=== PATIENT | male | born 1930 | race Caucasian/White ===

== ENCOUNTER 2017-12-31 18:42 | Emergency (ER) | payer MEDICARE ==
[2017-12-31] MEDS ORDERED: NS 0.9% 1000 ML* 1,000 ML BOLUS ONE (19:02)
[2017-12-31] MEDS ORDERED: Morphine INJ* 2 MG/ML 1 ML CARPUJECT IV ONE ×2 (19:03→19:21)
--- NOTE | 2017-12-31 19:13 | UC ---
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 abd was not feeling right since this AM no f/c nausea but no vomiting starined to pass stool prior to the onset of severe pain - History of Current Complaint Chief Complaint: UCAbdominalPain Stated Complaint: ABD PAIN Time Seen by Provider: 12/31/17 18:51 Hx Obtained From: Patient Onset/Duration: Sudden Onset Timing: Constant Severity Initially: Severe Severity Currently: Severe Pain Intensity: 10 Pain Scale Used: 0-10 Numeric Location: Other - LUQ Radiates: No Character: Unable to describe Aggravating Factor(s): Nothing Alleviating Factor(s): Nothing Associated Signs And Symptoms: Positive: Nausea - Allergies/Home Medications Allergies/Adverse Reactions: Allergies Allergy/AdvReac Type Severity Reaction Status Date / Time MS Calcium [Calcium] Allergy Vomiting Verified 12/31/17 18:52 MS Chicken Allergy Allergy Unknown Verified 12/31/17 18:52 [Chicken Allergy] Reaction Details MS Penicillins [Penicillins] Allergy Rash Verified 12/31/17 18:52 Home Medications: Home Medications Aspirin 81 mg CHEW TAB* 81 mg 12/31/17 [History] PMH/Surg Hx/FS Hx/Imm Hx Previously Healthy: Yes Cardiovascular History: Atrial Fibrillation Neurological History: Other Other Neurological History: G-B Other History Of: Negative For: HIV, Hepatitis B, Hepatitis C, Anticoagulant Therapy - Surgical History Surgical History: Yes Surgery Procedure, Year, and Place: cataract surgery - Family History Known Family History: Negative: Cardiac Disease, Hypertension Family History: NON CONTRIBUTORY - Social History Alcohol Use: None Substance Use Type: None Smoking Status (MU): Former Smoker Length of Time of Smoking/Using Tobacco: quit - Immunization History Most Recent Influenza Vaccination: never-ALLERGIC Most Recent Tetanus Shot: hasn't had one in a "long time" Most Recent Pneumonia Vaccination: within past few years Review of Systems Constitutional: Negative Skin: Negative Eyes: Negative ENT: Negative Respiratory: Negative Cardiovascular: Negative Gastrointestinal: Abdominal Pain, Nausea Genitourinary: Negative Motor: Negative Neurovascular: Negative Musculoskeletal: Negative Neurological: Negative Psychological: Negative Is Patient Immunocompromised?: No All Other Systems Reviewed And Are Negative: Yes Physical Exam Triage Information Reviewed: Yes Appearance: Ill-Appearing, Pain Distress - thrashing around/unable to get comfortable, Thin Vital Signs: Initial Vital Signs Temp 96.9 F 12/31/17 18:44 Pulse 70 12/31/17 18:44 Resp 16 12/31/17 18:44 BP 97/47 12/31/17 18:44 Pulse Ox 93 12/31/17 18:44 Vital Signs Reviewed: Yes Eyes: Positive: Conjunctiva Clear ENT: Positive: Hearing grossly normal. Negative: Nasal congestion, Nasal drainage, Trismus, Muffled voice, Hoarse voice Neck: Positive: Supple Respiratory: Positive: Lungs clear, Normal breath sounds, No respiratory distress, No accessory muscle use Cardiovascular: Positive: RRR. Negative: Tachycardia, Bradycardia Abdomen Description: Positive: Guarding. Negative: Nontender - tender ZEKE and LLQ Bowel Sounds: Positive: Absent Musculoskeletal: Positive: ROM Intact, No Edema Neurological Exam: Normal Neurological: Positive: Alert Psychological Exam: Normal Skin Exam: Other - pale Diagnostics - EKG Cardiac Rate: NL Cardiac Rhythm: Sinus: Normal Ectopy: PVCs ST Segment: Normal Re-Evaluation - Re-Evaluation First Eval Re-Evaluation Time: 19:21 Change: Unchanged Abd Pain Male Course/Dx - Course Course Of Treatment: d/w ER attending. [place] [facility] [place] - Differential Dx/Clinical Impression Provider Diagnoses: Abdominal pain of uncertain cause Discharge - Sign-Out/Discharge Documenting (check all that apply): Discharge/Admit/Transfer - Discharge Plan Condition: Guarded Disposition: TRANS HIGHER LVL OF CARE FAC Referrals: Cyril Marques MD [Primary Care Provider] - - Billing Disposition and Condition Condition: GUARDED Disposition: Trans Higher Lvl of Care Fac
[2017-12-31 19:30] VITALS: BP 125/62
== END 2017-12-31 19:50 | disposition short-term general hospital (02) ==
LOC: UCEAST 18:42
DX: R10.9 Unspecified abdominal pain (principal); Z91.09 Other allergy status, other than to drugs and biological substances; Z91.018 Allergy to other foods; Z87.891 Personal history of nicotine dependence
CPT/HCPCS: 93005; 96360; 96374; 96376; 99213; G0463; J2270

== ENCOUNTER 2017-12-31 19:54 | Inpatient (IN) | payer MEDICARE ==
[2017-12-31] MEDS ORDERED: NS 0.9% 1000 ML* 1,000 ML IV ONE (20:40)
--- NOTE | 2017-12-31 21:28 | RAD ---
Indication: Chronic abdominal pain with worsening today. Comparison: September 18, 2003 Technique: Upright AP 2108 hours Report: Mild prominence of the interstitial markings mildly increased over the 2004 exam. No focal pulmonary lesion, compelling alveolar consolidation, pleural effusion, pneumothorax. Negative for cardiomegaly. Unremarkable central pulmonary vasculature and mediastinal contours. Suggestion of free air beneath the RIGHT hemidiaphragm. IMPRESSION: #. Stigmata of probable chronic obstructive pulmonary disease. #. Suggestion of free air beneath the RIGHT hemidiaphragm. Correlate with clinical assessment and consider CT abdomen for further evaluation.
[2017-12-31] MEDS ORDERED: Piperacillin/Tazobac ADVAN(*) 3.375 GM in NS 0.9% 100 ML* 100 ML IVPB ONE (21:32)
[2017-12-31 22:30] LABS: Urine Appearance Clear; Urine Blood Negative (Negative); Urine Color Yellow; Urine Ketones Negative (Negative); Urine Protein Negative (Negative); Urine Specific Gravity 1.008 (1.010-1.030); Urine Urobilinogen Negative (Negative)
[2017-12-31] MEDS ORDERED: Bupivacaine 0.5% SDV PF* 30ML VIAL ONE (22:39)
[2017-12-31 22:41] LABS: ABS Basophils 0 10^3/ul (0-0.2); ABS Eosinophils 0 10^3/ul (0-0.6); ABS Lymphocytes 1.1 10^3/ul (1.0-4.8); ABS Monocytes 0.9 10^3/ul (0-0.8); ABS Neutrophils 6.9 10^3/ul (1.5-7.7); ABS Nucleated RBC 0 10^3/ul; Eosinophil % 0.1 % (0-6); Hematocrit 35 % (42-52); Hemoglobin 11.5 g/dl (14.0-18.0); INR 0.97 (0.77-1.02); Lymphocyte % 12.4 % (25-47); Mean Corpuscular HGB Conc 33 g/dl (31-36); Mean Corpuscular Hemoglobin 32 pg (27-31); Mean Corpuscular Volume 95 fL (80-94); Mean Platelet Volume 7.7 um3 (7.4-10.4); Nucleated Red Blood Cells % 0; Platelet Count 224 10^3/ul (150-450); Red Blood Count 3.62 10^6/ul (4.00-5.40); Red Cell Distribution Width 15 % (10.5-15); White Blood Count 8.9 10^3/ul (3.5-10.8)
[2017-12-31 22:50] LABS: EGFR Non-African American 72.3 (>60)
[2017-12-31] MEDS ORDERED: Rocuronium* 10 MG/ML VIAL ONE (23:18)
[2017-12-31] MEDS ORDERED: ceFAZolin 2 GM PREMIX (*) 2 GM/50 ML BAG IVPB ONE (23:23)
[2017-12-31] MEDS ORDERED: HYDROmorphone INJ* 0.5 MG/0.5 ML SYRINGE IV PRN (23:47)
[2017-12-31] MEDS ORDERED: Ketorolac INJ* 30 MG/ML 1 ML VIAL IV PRN (23:47)
[2017-12-31] MEDS ORDERED: Ondansetron INJ* 2 MG/ML VIAL IV PRN (23:47)
[2017-12-31] MEDS ORDERED: fentaNYL* 50 MCG/ML 2 ML VIAL (100 MCG VIAL) ONE (23:48)
--- NOTE | 2018-01-01 00:04 | ED ---
Rj Velez Jade, scribed for Rob Jeff on 12/31/17 at 2047 . Abdominal Pain/Male - HPI Summary HPI Summary: Pt is an 87 y/o male BIBA sent from [facility] [place] c/o abdominal pain. As per , he has had intermittent stomach aches for several months. Pt didnt feel well all day, but then at 17:00 the abdominal pain became worse. The pain is sharp, constant, and is rated 9/10 in severity. As per , the pain started on the right side then moved to the left. He also has been constipated, with his last true BM 1 week ago. He states he has to strain to produce a BM. Pt denies any N/ V or fever. Pt was given Morphine at the . He does not drink alcohol, and is a former smoker. 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 Negative: Fever, Nausea , Vomiting - Allergies/Home Medications Allergies/Adverse Reactions: Allergies Allergy/AdvReac Type Severity Reaction Status Date / Time MS Calcium [Calcium] Allergy Vomiting Verified 12/31/17 18:52 MS Chicken Allergy Allergy Unknown Verified 12/31/17 18:52 [Chicken Allergy] Reaction Details MS Penicillins [Penicillins] Allergy Rash Verified 12/31/17 18:52 PMH/Surg Hx/FS Hx/Imm Hx Endocrine/Hematology History: Denies: Hx Anticoagulant Therapy, Hx Diabetes, Hx Thyroid Disease Cardiovascular History: Denies: Hx Angina, Hx Congestive Heart Failure, Hx Coronary Artery Disease, Hx Deep Vein Thrombosis, Hx Hypercholesterolemia, Hx Hypertension, Hx Myocardial Infarction, Hx Pacemaker/ICD, Hx Valvular Heart Disease Respiratory History: Denies: Hx Asthma, Hx Chronic Obstructive Pulmonary Disease (COPD), Hx Lung Cancer, Hx Pneumonia, Hx Pulmonary Embolism GI History: Denies: Hx Gall Bladder Disease, Hx Gastrointestinal Bleed, Hx Ulcer, Hx Urosepsis History: Denies: Hx Kidney Stones, Hx Renal Disease Neurological History: Reports: 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 Denies: Hx Dementia, Hx Migraine, Hx Seizures, Hx Transient Ischemic Attacks (TIA) Psychiatric History: Denies: Hx Anxiety, Hx Depression, Hx Schizophrenia, Hx Bipolar Disorder - Surgical History Surgery Procedure, Year, and Place: cataract surgery - Immunization History Immunizations Up to Date: Yes Infectious Disease History: No Infectious Disease History: Denies: Hx Clostridium Difficile, Hx Hepatitis, Hx Human Immunodeficiency Virus (HIV), Hx of Known/Suspected MRSA, History Other Infectious Disease, Traveled Outside the [place] in Last 30 Days - Family History Known Family History: Positive: Cardiac Disease, Other - Eye cancer (sister) Negative: Hypertension Family History: NON CONTRIBUTORY - Social History Alcohol Use: None Substance Use Type: Reports: None Smoking Status (MU): Former Smoker Length of Time of Smoking/Using Tobacco: quit Review of Systems Negative: Fever Positive: Abdominal Pain, Other - Constipation. Negative: Vomiting, Nausea All Other Systems Reviewed And Are Negative: Yes Physical Exam - Summary Physical Exam Summary: Appearance: Well appearing, mild pain distress Skin: warm, dry, reflects adequate perfusion Head/face: normal Eyes: EOMI, ELSIE ENT: dry mucus membranes Neck: supple, non-tender Respiratory: CTA, breath sounds present Cardiovascular: RRR, pulses symmetrical Abdomen: diffuse abdominal tenderness Bowel: present Musculoskeletal: normal, strength/ROM intact Neuro: normal, sensory motor intact, A&Ox3 Triage Information Reviewed: Yes Vital Signs On Initial Exam: Initial Vitals Temp Pulse Resp BP Pulse Ox 97.6 F 77 20 130/65 91 12/31/17 20:23 12/31/17 20:23 12/31/17 20:23 12/31/17 20:23 12/31/17 20:23 Vital Signs Reviewed: Yes Diagnostics - Vital Signs Vital Signs Temp Pulse Resp BP Pulse Ox 12/31/17 20:23 97.6 F 77 20 130/65 91 - Laboratory Lab Results: Lab Results 12/31/17 12/31/17 12/31/17 Range/Units 22:19 22:19 22:19 WBC 8.9 (3.5-10.8) 10^3/ul RBC 3.62 L (4.00-5.40) 10^6/ul Hgb 11.5 L (14.0-18.0) g/dl Hct 35 L (42-52) % MCV 95 H (80-94) fL MCH 32 H (27-31) pg MCHC 33 (31-36) g/dl RDW 15 (10.5-15) % Plt Count 224 (150-450) 10^3/ul MPV 7.7 (7.4-10.4) um3 Neut % (Auto) 77.1 (38-83) % Lymph % (Auto) 12.4 L (25-47) % [place] % (Auto) 10.1 H (0-7) % Eos % (Auto) 0.1 (0-6) % Baso % (Auto) 0.3 (0-2) % Absolute Neuts (auto) 6.9 (1.5-7.7) 10^3/ul Absolute Lymphs (auto) 1.1 (1.0-4.8) 10^3/ul Absolute Monos (auto) 0.9 H (0-0.8) 10^3/ul Absolute Eos (auto) 0 (0-0.6) 10^3/ul Absolute Basos (auto) 0 (0-0.2) 10^3/ul Absolute Nucleated RBC 0 10^3/ul Nucleated RBC % 0 INR (Anticoag Therapy) (0.77-1.02) APTT (26.0-36.3) seconds Sodium 137 (135-145) mmol/L Potassium 4.0 (3.5-5.0) mmol/L Chloride 103 (101-111) mmol/L Carbon Dioxide 26 (22-32) mmol/L Anion Gap 8 (2-11) mmol/L BUN 13 (6-24) mg/dL Creatinine 0.98 (0.67-1.17) mg/dL Est GFR ( Amer) 87.5 (>60) Est GFR (Non-Af Amer) 72.3 (>60) BUN/Creatinine Ratio 13.3 (8-20) Glucose 188 H (70-100) mg/dL Lactic Acid 1.3 (0.5-2.0) mmol/L Calcium 8.5 L (8.6-10.3) mg/dL Total Bilirubin 0.60 (0.2-1.0) mg/dL AST 17 (13-39) U/L ALT 9 (7-52) U/L Alkaline Phosphatase 58 (34-104) U/L Troponin I 0.00 (<0.04) ng/mL Total Protein 7.0 (6.4-8.9) g/dL Albumin 3.5 (3.2-5.2) g/dL Globulin 3.5 (2-4) g/dL Albumin/Globulin Ratio 1.0 (1-3) Lipase 18 (11.0-82.0) U/L Urine Color Urine Appearance Urine pH (5-9) Ur Specific [place] (1.010-1.030) Urine Protein (Negative) Urine Ketones (Negative) Urine Blood (Negative) Urine Nitrate (Negative) Urine Bilirubin (Negative) Urine Urobilinogen (Negative) Ur Leukocyte Esterase (Negative) Urine Glucose (Negative) 12/31/17 12/31/17 Range/Units 22:19 22:21 WBC (3.5-10.8) 10^3/ul RBC (4.00-5.40) 10^6/ul Hgb (14.0-18.0) g/dl Hct (42-52) % MCV (80-94) fL MCH (27-31) pg MCHC (31-36) g/dl RDW (10.5-15) % Plt Count (150-450) 10^3/ul MPV (7.4-10.4) um3 Neut % (Auto) (38-83) % Lymph % (Auto) (25-47) % [place] % (Auto) (0-7) % Eos % (Auto) (0-6) % Baso % (Auto) (0-2) % Absolute Neuts (auto) (1.5-7.7) 10^3/ul Absolute Lymphs (auto) (1.0-4.8) 10^3/ul Absolute Monos (auto) (0-0.8) 10^3/ul Absolute Eos (auto) (0-0.6) 10^3/ul Absolute Basos (auto) (0-0.2) 10^3/ul Absolute Nucleated RBC 10^3/ul Nucleated RBC % INR (Anticoag Therapy) 0.97 (0.77-1.02) APTT 26.2 (26.0-36.3) seconds Sodium (135-145) mmol/L Potassium (3.5-5.0) mmol/L Chloride (101-111) mmol/L Carbon Dioxide (22-32) mmol/L Anion Gap (2-11) mmol/L BUN (6-24) mg/dL Creatinine (0.67-1.17) mg/dL Est GFR ( Amer) (>60) Est GFR (Non-Af Amer) (>60) BUN/Creatinine Ratio (8-20) Glucose (70-100) mg/dL Lactic Acid (0.5-2.0) mmol/L Calcium (8.6-10.3) mg/dL Total Bilirubin (0.2-1.0) mg/dL AST (13-39) U/L ALT (7-52) U/L Alkaline Phosphatase (34-104) U/L Troponin I (<0.04) ng/mL Total Protein (6.4-8.9) g/dL Albumin (3.2-5.2) g/dL Globulin (2-4) g/dL Albumin/Globulin Ratio (1-3) Lipase (11.0-82.0) U/L Urine Color Yellow Urine Appearance Clear Urine pH 5.0 (5-9) Ur Specific [place] 1.008 L (1.010-1.030) Urine Protein Negative (Negative) Urine Ketones Negative (Negative) Urine Blood Negative (Negative) Urine Nitrate Negative (Negative) Urine Bilirubin Negative (Negative) Urine Urobilinogen Negative (Negative) Ur Leukocyte Esterase Negative (Negative) Urine Glucose Negative (Negative) Result Diagrams: 12/31/17 22:19 12/31/17 22:19 Lab Statement: Any lab studies that have been ordered have been reviewed, and results considered in the medical decision making process. - Radiology CXR Xray Interpretation: Positive (See Comments) - 20:41 Stigmata of probable chronic obstructive pulmonary disease. Suggestion of free air beneath the RIGHT hemidiaphragm. Correlate with clinical assessment and consider CT abdomen for further evaluation. ED physician reviewed radiology report. Radiology Interpretation Completed By: Radiologist - CT CT A/P CT Interpretation: Positive (See Comments) - 23:48 Atelectasis and scarring in lung bases. No pleural effusions. Small to moderate hiatal hernia. RIght gynecomastia. Moderate pneumoperitneum, compatible with a perforated viscus. This is likely due to perforated gastric ulceration in the anterior gastric antrum where there are moderate mural thickening, adjacent gas bubbles and oral contrast extravasation. Cholelithiasis. The liver, pancreas, adrenal glands, and spleen are grossly unremarkable. No renal or urinary calculi. No AAA. No evidence for vierticulitis or bowel obstruction. Appendix is mostly fatty. No evidence for appendicitis. ED physician reviewed radiology report. CT Interpretation Completed By: Radiologist - EKG 21:17 Cardiac Rate: NL - 82 bpm EKG Rhythm: Sinus Rhythm EKG Interpretation: No acute changes Abdominal Pain Fem Course/Dx - Course Course Of Treatment: Pt is an 87 y/o male c/o abdominal pain, was has been intermittent for several months, but worsened at 17:00 today. The pain is sharp , constant, and is rated 9/10 in severity, and also has been constipated, with his last true BM 1 week ago. A physical exam revealed mild pain distress, dry mucus membranes, and diffuse abdominal tenderness. A CXR revealed stigmata of probable chronic obstructive pulmonary disease, suggestion of free air beneath the RIGHT hemidiaphragm, correlate with clinical assessment and consider CT abdomen for further evaluation. An EKG revealed sinus rhythm and normal rate at [address] A/P revealed Atelectasis and scarring in lung bases. No pleural effusions. Small to moderate hiatal hernia. RIght gynecomastia. Moderate pneumoperitneum, compatible with a perforated viscus. This is likely due to perforated gastric ulceration in the anterior gastric antrum where there are moderate mural thickening, adjacent gas bubbles and oral contrast extravasation. Cholelithiasis. The liver, pancreas, adrenal glands, and spleen are grossly unremarkable. No renal or urinary calculi. No AAA. No evidence for vierticulitis or bowel obstruction. Appendix is mostly fatty. No evidence for appendicitis. At 21:25 Dr. Cruz was consulted, and he stated the pt has perforation of the bowel, and to consult surgery. At 21:29 Dr. Moreno was consulted, and he said he will come to the ED to see the pt. Pt will be admitted to Dr. Moreno. Final dx is bowel perforation. Pt is agreeable with this plan. - Diagnoses Differential Diagnosis/HQI/PQRI: Appendicitis, Bowel Obstruction, Constipation, Diverticulitis, Ischemic Bowel, Pancreatitis, Urinary Tract Infection Provider Diagnoses: Bowel perforation - Provider Notifications Discussed Care Of Patient With: Wayne Cruz Time Discussed With Above Provider: 21:25 Instructed by Provider To: Other - Dr. Cruz states the pt has perforation of the bowel, and to consult surgery. At 21:29 Dr. Moreno was consulted, and he will come to the ED to see the pt. - Critical Care Time Critical Care Time: 30-74 min Discharge - Sign-Out/Discharge Documenting (check all that apply): Discharge/Admit/Transfer - Admit - Discharge Plan Condition: Guarded Disposition: ADMITTED TO [facility] Referrals: Cyril Marques MD [Primary Care Provider] - - Billing Disposition and Condition Condition: GUARDED Disposition: Admitted to [facility] The documentation as recorded by the Rj ball Jade accurately reflects the service I personally performed and the decisions made by Randee jesus Emmanuel.
[2018-01-01] MEDS ORDERED: Etomidate* 2 MG/ML 10 ML VIAL ONE (00:21)
[2018-01-01] MEDS ORDERED: Neostigmine Methylsulfate* 1 MG/ML 10 ML VIAL (1 mg/ml) ONE (00:37)
[2018-01-01] MEDS ORDERED: Glycopyrrolate IV* 0.2 MG/ML 1 ML VIAL ONE (00:37)
[2018-01-01] MEDS ORDERED: fentaNYL* 50 MCG/ML 2 ML VIAL (100 MCG VIAL) IV PRN (01:10)
[2018-01-01] MEDS ORDERED: Naloxone* 0.4 MG/ML 1 ML VIAL IV PRN (01:10)
--- NOTE | 2018-01-01 01:17 | HP ---
CC: Dr. Isaiah Moreno; Dr. Cyril Marques HISTORY AND PHYSICAL: DATE OF ADMISSION: 12/31/17 CHIEF COMPLAINT: Abdominal pain. HISTORY OF PRESENT ILLNESS: Mr. Washington is an 87-year-old male who according to his has been shook ving intermittent stomach aches on and off for a few weeks, but then today it became very severe and persistent. He seems to indicate the epigastrium is where it is more severe, although he says it janae ts all over. He has had no nausea, no vomiting, no fever, no chills, no diarrhea. He does have some chronic constipation that has not really changed. No prior GI history. No previous abdominal surge demarco. PAST MEDICAL HISTORY: Reveals history of atrial fibrillation. He is not on anticoagulation. He has had history of COPD. He was a chronic smoker years ago, but quit 30 years ago and has been pretty h ealthy from a respiratory standpoint lately. 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 MEDICATIONS: His only medications are baby aspirin a day. ALLERGIES: His allergies include PENICILLIN. He says it happened so long so, he has no idea what th e reaction was. He has actually had cephalosporins since and has been okay. SOCIAL HISTORY: He is . Quit smoking 30 years ago. He is retired. FAMILY HISTORY: Noncontributory. REVIEW OF SYSTEMS: Negative for any CA, congestive failure, heart pain, or angina pain. He has had mild COPD as noted above, but is reasonably active and does not have dyspnea. He has no chronic coug h. He does not have chronic pneumonias or bronchitis. He has no major GI or history. No chronic digestive problems other than occasional constipation and no kidney stones or kidney infections. No neuromuscular history other than the Guillain-Harts, from which he made a good recovery. There were no psych issues. No bleeding or clotting tendencies. PHYSICAL EXAMINATION GENERAL: He is a well-developed, well-nourished male consistent with stated age. VITAL SIGNS: Show temperature 97.6, heart rate 82, regular, respirations 20 and unlabored, O2 satura tion 94%, blood pressure 147/76. He is 6 feet and 1 inch, 170 pounds with a BMI of 22. NECK: Supple without any adenopathy. LUNGS: Good aeration with no apparent dyspnea. HEART: Regular. ABDOMEN: Rigid. Tender throughout, most impressively in the upper abdomen. There are no palpable h ernias or masses. No scars. EXTREMITIES: Well perfused and without edema. SKIN: Warm and well perfused. He appears uncomfortable. He is not diaphoretic. LABORATORY DATA: Laboratory studies show white blood count at 8900, hemoglobin 11.5, platelets 224. Lactic acid is 1.3. Electrolytes are normal. LFTs, lipase are normal. Chest x-ray and CT scan both show abdominal free air with what appears to be evidence of perforated g astric ulcer. IMPRESSION: This is an 87-year-old male with rigid abdomen and free air consistent with perforated g astric ulcer. PLAN: I discussed with him and with his that I recommend laparoscopy to repair the gastric ulce r and wash out the spillage. He understands the procedure, the rationale, the risks, and the expecte d recovery and agrees to proceed in the fashion outlined. [id number]/[facility] #: [id number]
[2018-01-01] MEDS ORDERED: Heparin VIAL(*) 5000 UNITS/ML VIAL (FIVE THOUSAND) SUBCUT SCH (06:00)
[2018-01-01] MEDS ORDERED: ceFAZolin 1 GM in Dextrose (*) 1 GM/50 ML BAG IVPB SCH (06:00)
[2018-01-01] MEDS: Heparin VIAL(*) 5000 UNITS/ML VIAL (FIVE THOUSAND) SUBCUT SCH ×3 (06:26→22:02)
[2018-01-01] MEDS ORDERED: Albuterol 2.5 MG/3 ML NEB.SOL* (0.083%) INH PRN (06:39)
--- NOTE | 2018-01-01 06:40 | CONSULT ---
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 Yesterday evening the pain became severe and continuous prompting him to ask his to take him to the hospital which is unusual for him. ED evaluation identified a likely ruptured gastric ulcer for which he was taken to emergent laparoscopic surgery with successful repair. Upon my evaluation on SSU post-operatively he was still quite sedated from anesthesiology, but in no distress. Therefore, this information is largely supplemented by his who was present at the bedside and the available medical record. 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) Ambulatory Orders Aspirin 81 mg CHEW TAB* 81 mg PO DAILY 12/31/17 Allergies MS Calcium [Calcium] Allergy (Verified 12/31/17 18:52) Vomiting MS Chicken Allergy [Chicken Allergy] Allergy (Verified 12/31/17 18:52) Unknown Reaction Details MS Penicillins [Penicillins] Allergy (Verified 12/31/17 18:52) Rash PSurgHx POD zero laparoscopic perforated gastric ulcer repair SocHx: quit smoking 30 years ago, no alcohol or recreational drugs; lives with his ; 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; full code status FamHx: reviewed and non-contributory to presentation ROS: as above, otherwise reviewed and all were negative vitals: Vital Signs Temp 36.8 C 01/01/18 04:45 Pulse 90 01/01/18 04:45 Resp 18 01/01/18 04:45 BP 104/45 01/01/18 04:45 Pulse Ox 100 01/01/18 04:45 Constitutional: NAD, normally developed, well-nourished elderly white male HEENM: atraumatic; sclera/conjunctiva: anicteric/mildly injected OU; hearing: unable to adequately assess; oropharynx: clear, mucosa moist Neck: soft tissue: non-tender; thyroid: normal Pulmonary: clear to auscultation bilaterally, good aeration, no accessory muscle use CV: RR/RR, normal S1S2, no carotid bruit, no jugular venous distention, 2+ B DP/ PT, no edema Abdominal: soft, non-distended, moderately diffusely tender worst in the epigastrum, no rebound/guarding/rigidity, hypoactive bowel sounds, no hepatosplenomegaly or masses, no costovertebral angle tenderness Musculoskeletal: general: grossly intact, non-tender Integumental: L neck with a raised ~10x4cm violaceous papular lesion treated by "an injection" by 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 manager in [place] Psychiatric orientation: somnolent, briefly arousable affect: somnolent mood: acquiescent eye contact: poor content: minimal at this time 2nd sedation insight: poor Testing: Lab Results 12/31/17 12/31/17 12/31/17 Range/Units 22:19 22:19 22:19 WBC 8.9 (3.5-10.8) 10^3/ul RBC 3.62 L (4.00-5.40) 10^6/ul Hgb 11.5 L (14.0-18.0) g/dl Hct 35 L (42-52) % MCV 95 H (80-94) fL MCH 32 H (27-31) pg MCHC 33 (31-36) g/dl RDW 15 (10.5-15) % Plt Count 224 (150-450) 10^3/ul MPV 7.7 (7.4-10.4) um3 Neut % (Auto) 77.1 (38-83) % Lymph % (Auto) 12.4 L (25-47) % [place] % (Auto) 10.1 H (0-7) % Eos % (Auto) 0.1 (0-6) % Baso % (Auto) 0.3 (0-2) % Absolute Neuts (auto) 6.9 (1.5-7.7) 10^3/ul Absolute Lymphs (auto) 1.1 (1.0-4.8) 10^3/ul Absolute Monos (auto) 0.9 H (0-0.8) 10^3/ul Absolute Eos (auto) 0 (0-0.6) 10^3/ul Absolute Basos (auto) 0 (0-0.2) 10^3/ul Absolute Nucleated RBC 0 10^3/ul Nucleated RBC % 0 INR (Anticoag Therapy) (0.77-1.02) APTT (26.0-36.3) seconds Sodium 137 (135-145) mmol/L Potassium 4.0 (3.5-5.0) mmol/L Chloride 103 (101-111) mmol/L Carbon Dioxide 26 (22-32) mmol/L Anion Gap 8 (2-11) mmol/L BUN 13 (6-24) mg/dL Creatinine 0.98 (0.67-1.17) mg/dL Est GFR ( Amer) 87.5 (>60) Est GFR (Non-Af Amer) 72.3 (>60) BUN/Creatinine Ratio 13.3 (8-20) Glucose 188 H (70-100) mg/dL Lactic Acid 1.3 (0.5-2.0) mmol/L Calcium 8.5 L (8.6-10.3) mg/dL Total Bilirubin 0.60 (0.2-1.0) mg/dL AST 17 (13-39) U/L ALT 9 (7-52) U/L Alkaline Phosphatase 58 (34-104) U/L Troponin I 0.00 (<0.04) ng/mL Total Protein 7.0 (6.4-8.9) g/dL Albumin 3.5 (3.2-5.2) g/dL Globulin 3.5 (2-4) g/dL Albumin/Globulin Ratio 1.0 (1-3) Lipase 18 (11.0-82.0) U/L Urine Color Urine Appearance Urine pH (5-9) Ur Specific [place] (1.010-1.030) Urine Protein (Negative) Urine Ketones (Negative) Urine Blood (Negative) Urine Nitrate (Negative) Urine Bilirubin (Negative) Urine Urobilinogen (Negative) Ur Leukocyte Esterase (Negative) Urine Glucose (Negative) 12/31/17 12/31/17 Range/Units 22:19 22:21 WBC (3.5-10.8) 10^3/ul RBC (4.00-5.40) 10^6/ul Hgb (14.0-18.0) g/dl Hct (42-52) % MCV (80-94) fL MCH (27-31) pg MCHC (31-36) g/dl RDW (10.5-15) % Plt Count (150-450) 10^3/ul MPV (7.4-10.4) um3 Neut % (Auto) (38-83) % Lymph % (Auto) (25-47) % [place] % (Auto) (0-7) % Eos % (Auto) (0-6) % Baso % (Auto) (0-2) % Absolute Neuts (auto) (1.5-7.7) 10^3/ul Absolute Lymphs (auto) (1.0-4.8) 10^3/ul Absolute Monos (auto) (0-0.8) 10^3/ul Absolute Eos (auto) (0-0.6) 10^3/ul Absolute Basos (auto) (0-0.2) 10^3/ul Absolute Nucleated RBC 10^3/ul Nucleated RBC % INR (Anticoag Therapy) 0.97 (0.77-1.02) APTT 26.2 (26.0-36.3) seconds Sodium (135-145) mmol/L Potassium (3.5-5.0) mmol/L Chloride (101-111) mmol/L Carbon Dioxide (22-32) mmol/L Anion Gap (2-11) mmol/L BUN (6-24) mg/dL Creatinine (0.67-1.17) mg/dL Est GFR ( Amer) (>60) Est GFR (Non-Af Amer) (>60) BUN/Creatinine Ratio (8-20) Glucose (70-100) mg/dL Lactic Acid (0.5-2.0) mmol/L Calcium (8.6-10.3) mg/dL Total Bilirubin (0.2-1.0) mg/dL AST (13-39) U/L ALT (7-52) U/L Alkaline Phosphatase (34-104) U/L Troponin I (<0.04) ng/mL Total Protein (6.4-8.9) g/dL Albumin (3.2-5.2) g/dL Globulin (2-4) g/dL Albumin/Globulin Ratio (1-3) Lipase (11.0-82.0) U/L Urine Color Yellow Urine Appearance Clear Urine pH 5.0 (5-9) Ur Specific [place] 1.008 L (1.010-1.030) Urine Protein Negative (Negative) Urine Ketones Negative (Negative) Urine Blood Negative (Negative) Urine Nitrate Negative (Negative) Urine Bilirubin Negative (Negative) Urine Urobilinogen Negative (Negative) Ur Leukocyte Esterase Negative (Negative) Urine Glucose Negative (Negative) ECG, personally reviewed: NSR rate 82, no ischemia CXR, personally reviewed: IMPRESSION: #. Stigmata of probable chronic obstructive pulmonary disease. #. Suggestion of free air beneath the RIGHT hemidiaphragm. Correlate with clinical assessment and consider CT abdomen for further evaluation. CT abd/pel WO, personally reviewed: FINDINGS: Atelectasis and scarring in lung bases. No pleural effusions. Small to moderate hiatal hernia. Right gynecomastia. Moderate pneumoperitoneum, compatible with a perforated viscus. This is likely due to perforated gastric ulceration in the antrum where there are moderate mucosal thickening, adjacent gas bubbles and oral contrast extravasation. Cholelithiasis. The liver, pancreas, adrenal glands, and spleen are grossly unremarkable. Impression: 87M HX AFIB, COPD, constipation, Guillain-[place] presenting with gastric ulcer perforation s/p laparoscopic repair DIAGNOSIS & PLAN Primary perforated gastric ulcer POD zero : management per surgery : pain control : Thank you for this interesting consult, we will continue to follow. Secondary AFIB : Dr Moreno agreed to allow full heparinization 0900 or later, if patient accepts : as he cannot afford rivaroxaban and has refused warfarin, if no oral agent acceptable and affordable to the patient can be identified I would advise against heparinization. However, if the risks and benefits of warfarin can be explained to the patient he may accept warfarin in which case heparinization would be advised. He is too sedated to have that conversation at this time. 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
--- NOTE | 2018-01-01 08:43 | PN ---
Progress Note - Progress Note Date of Service: 01/01/18 Note: POD#1 s/p perf gastric ulcer Afeb, VS noted alert and coherent, pain much better than last night uo 300 No N/V, NG drainage small this AM Abd soft, flat sore, no longer rigid, incis clean Impr: s/p perf gastric ulcer cont iv abx cont NGT, NPO UGI study AM 7/2 cont protonix Gastro f/u on disch Other meds per hospitalist
--- NOTE | 2018-01-01 08:43 | PN ---
Subjective Date of Service: 01/01/18 Interval History: Mr. Washington reports feeling better this morning. He denies abdominal pain or nausea. He further denies chest pain or SOB. Objective Active Medications: Albuterol (Ventolin 2.5 Mg/3 Ml Neb.Rossana*) 2.5 mg INH Q2H PRN Heparin Sodium (Porcine) (Heparin Vial(*)) 5,000 units SUBCUT Q8HR ARCHANA Hydromorphone HCl (Dilaudid Inj*) 0.5 mg IV Q1H PRN Lactated Ringer's (Lactated Ringers 1000 Ml Bag*) 1,000 mls @ 100 mls/hr IV PER RATE ARCHANA Cefazolin Sodium/Dextrose (Kefzol 1 Gm In Dextrose Duplex (*)) 1 gm in 50 mls @ 200 mls/hr IVPB Q6H ARCHANA Ketorolac Tromethamine (Toradol Inj*) 15 mg IV Q6H PRN Ondansetron HCl (Zofran Inj*) 4 mg IV Q4H PRN Pantoprazole Sodium (Protonix Iv*) 40 mg IV DAILY ARCHANA Vital Signs: Temp Pulse Resp BP Pulse Ox 98.8 F 82 20 108/50 94 01/01/18 08:06 01/01/18 08:32 01/01/18 08:06 01/01/18 08:06 01/01/18 08:32 Oxygen Devices in Use Now: Nasal Cannula Appearance: Elderly male lying in bed in NAD Eyes: No Scleral Icterus Ears/Nose/Mouth/Throat: Mucous Membranes Moist Neck: Trachea Midline Respiratory: Symmetrical Chest Expansion and Respiratory Effort, Clear to Auscultation Cardiovascular: NL Sounds; No Murmurs; No JVD, No Edema Abdominal: - - Soft, no tenderness to gentle palpation, no BS auscultated Skin: - - Abdominal lap sites with steri strips, no draininage Neurological: Alert and Oriented x 3, NL Muscle Strength and Tone Lines/Tubes/Other Access: Clean, Dry and Intact Naso-enteral Tube Result Diagrams: 12/31/17 22:19 12/31/17 22:19 Additional Lab and Data: . Assess/Plan/Problems-Billing Assessment: Mr. Washington is an 87 yo male with a PMH of afib, COPD, and guillaine-barre who was admitted on 12/31/17 with a perforated gastric ulcer now s/p laparoscopic washout and repair. - Patient Problems (1) Perforated gastric ulcer Comment: - Afebrile, not tachycardic, SBP > 100. - POD # 1 s/p washout and repair with Dr. Moerno. Upper GI series planned for . - Pain meds prn. - NPO, Continue NGT. - Continue protonix, will need GI follow up outpatient. - Continue zosyn. (2) Afib Comment: - Currently in NSR. - Patient did not want anticoagulation outpatient, no history of CVA. Will resume aspirin when taking po. - No indication for bridging therapy but will continue to discuss risks and benefits of intermediate anticoagulation with patient and family. (3) COPD (chronic obstructive pulmonary disease) Comment: - No evidence of acute exacerbation. (4) DVT prophylaxis Comment: - Heparin SQ. (5) Full code status Comment: Status and Disposition: Inpatient. Anticipate discharge to home when medically stable.
--- NOTE | 2018-01-01 09:18 | RAD ---
Indication: Abdominal pain. CT of the abdomen and pelvis was performed without IV contrast administration. Coronal and sagittal reconstructed images were obtained. Lung bases demonstrate no pleural fluid, nodules or masses. There is free intraperitoneal air noted there is focal wall thickening of the gastric antrum. This may be due to perforated stomach. The liver is normal in size. No focal lesions or intrahepatic duct dilatation gallbladder demonstrates calcified gallstones. No wall thickening is identified. The spleen is normal in size. Pancreas demonstrates no mass or pancreatic duct dilatation. No adrenal lesions are noted. Common duct is not dilated. The kidneys demonstrate no hydronephrosis. Atherosclerotic aorta is noted. No retroperitoneal lymphadenopathy is noted. CT of the pelvis demonstrates small to moderate amount of free fluid. Prostate and urinary bladder are unremarkable. IMPRESSION: Moderate degree of free intraperitoneal air with distended stomach and wall thickening of the gastric antrum. Flocculent air is noted adjacent to the gastric antrum and this may represent gastric perforation. Hiatal hernia is noted.
[2018-01-01] MEDS: Pantoprazole IV* 40 MG IV SCH (09:36)
[2018-01-01] MEDS ORDERED: Zosyn per Pharmacy* NOTE FOLLOW UP PRN (10:36)
[2018-01-01] MEDS: Piperacillin/Tazobac ADVAN(*) 3.375 GM in NS 0.9% 100 ML* 100 ML IVPB SCH ×2 (11:18→18:11)
[2018-01-01] MEDS: NS 0.9% 1000 ML* 1,000 ML IV SCH (19:05)
[2018-01-02] MEDS: Piperacillin/Tazobac ADVAN(*) 3.375 GM in NS 0.9% 100 ML* 100 ML IVPB SCH ×3 (03:00→18:25)
[2018-01-02 05:10] LABS: ABS Basophils 0.1 10^3/ul (0-0.2); ABS Eosinophils 0.2 10^3/ul (0-0.6); ABS Lymphocytes 1.5 10^3/ul (1.0-4.8); ABS Monocytes 1.2 10^3/ul (0-0.8); ABS Neutrophils 7.9 10^3/ul (1.5-7.7); ABS Nucleated RBC 0 10^3/ul; Eosinophil % 1.4 % (0-6); Hematocrit 33 % (42-52); Lymphocyte % 14.3 % (25-47); Mean Corpuscular HGB Conc 33 g/dl (31-36); Mean Corpuscular Hemoglobin 32 pg (27-31); Mean Corpuscular Volume 96 fL (80-94); Mean Platelet Volume 8.2 um3 (7.4-10.4); Nucleated Red Blood Cells % 0; Platelet Count 192 10^3/ul (150-450); Red Cell Distribution Width 15 % (10.5-15); White Blood Count 10.8 10^3/ul (3.5-10.8)
[2018-01-02] MEDS: NS 0.9% 1000 ML* 1,000 ML IV SCH ×2 (05:26→16:22)
[2018-01-02] MEDS: Heparin VIAL(*) 5000 UNITS/ML VIAL (FIVE THOUSAND) SUBCUT SCH ×3 (05:27→21:49)
--- NOTE | 2018-01-02 07:55 | PN ---
Subjective Date of Service: 01/02/18 Interval History: Mr. Washington reports continued pain to his abdomen but feels that it is better; he describes it as coming in waves. He denies nausea or vomiting. He denies chest pain or SOB. Objective Active Medications: Albuterol (Ventolin 2.5 Mg/3 Ml Neb.Rossana*) 2.5 mg INH Q2H PRN Heparin Sodium (Porcine) (Heparin Vial(*)) 5,000 units SUBCUT Q8HR ARCHANA Hydromorphone HCl (Dilaudid Inj*) 0.5 mg IV Q1H PRN Piperacillin Sod/Tazobactam (Sod 3.375 gm/ Sodium Chloride) 100 mls @ 25 mls/ hr IVPB Q8H ARCHANA Sodium Chloride (Ns 0.9% 1000 Ml*) 1,000 mls @ 100 mls/hr IV .PER RATE ARCHANA Ondansetron HCl (Zofran Inj*) 4 mg IV Q4H PRN Pantoprazole Sodium (Protonix Iv*) 40 mg IV DAILY [facility] Pharmacy Consult (Zosyn Per Pharmacy*) 1 note FOLLOW UP . PRN Vital Signs: Temp Pulse Resp BP Pulse Ox 98.3 F 87 18 137/62 100 01/02/18 04:31 01/02/18 04:31 01/02/18 07:21 01/02/18 04:31 01/02/18 04:31 Oxygen Devices in Use Now: Nasal Cannula Appearance: Elderly male lying in bed in NAD Eyes: No Scleral Icterus Ears/Nose/Mouth/Throat: Mucous Membranes Moist Neck: Trachea Midline Respiratory: Symmetrical Chest Expansion and Respiratory Effort, Clear to Auscultation Cardiovascular: NL Sounds; No Murmurs; No JVD, No Edema Abdominal: - - Soft, tender to palpation throughout, R> L, BS+ Lymphatic: No Cervical Adenopathy Extremities: No Edema Skin: - - lap sites with steri strips, no drainage or erythema Neurological: Alert and Oriented x 3, NL Muscle Strength and Tone Lines/Tubes/Other Access: Clean, Dry and Intact Naso-enteral Tube Result Diagrams: 01/02/18 04:41 12/31/17 22:19 Additional Lab and Data: . Assess/Plan/Problems-Billing Assessment: Mr. Washington is an 87 yo male with a PMH of afib, COPD, and guillaine-barre who was admitted on 12/31/17 with a perforated gastric ulcer now s/p laparoscopic washout and repair. - Patient Problems (1) Perforated gastric ulcer Comment: - Afebrile, not tachycardic, SBP > 100. - POD # 2 s/p washout and repair with Dr. Moreno. Upper GI series planned for . - Pain meds prn. - NPO, Continue NGT. - Continue protonix, will need GI follow up outpatient. - Continue zosyn. (2) Afib Comment: - Currently in NSR. - Patient did not want anticoagulation outpatient, no history of CVA. Will resume aspirin when taking po. - No indication for bridging therapy but will continue to discuss risks and benefits of terminologist anticoagulation with patient and family. (3) COPD (chronic obstructive pulmonary disease) Comment: - No evidence of acute exacerbation. (4) DVT prophylaxis Comment: - Heparin SQ. (5) Full code status Comment: Status and Disposition: Inpatient. Anticipate discharge to home when medically stable.
[2018-01-02] MEDS: Pantoprazole IV* 40 MG IV SCH (08:49)
--- NOTE | 2018-01-02 08:52 | PN ---
Progress Note - Progress Note Date of Service: 01/02/18 SOAP: Subjective: Reports abdominal pain with improvement from analgesics. He wants SCDs off RLE because it is uncomfortable. No flatus. He thinks he would be ok taking Coumadin, after thinking about it further. Objective: Vital Signs Temp 98.3 F 01/02/18 04:31 Pulse 87 01/02/18 04:31 Resp 18 01/02/18 07:21 BP 137/62 01/02/18 04:31 Pulse Ox 100 01/02/18 04:31 Gen: NAD Lungs: cta b Heart: reg s1s2 Abd: incisions c/d/i no erythema, tender throughtout. Few BS. Ext: warm; no C/C/E Intake & Output 01/01/18 01/02/18 01/02/18 18:59 06:59 18:59 Intake Total 2045 Output Total 1275 725 Balance -1275 1320 Intake: IV Fluids 2045 NS (0.9%) 2045 Oral 0 Output: NG Tube Drainage Amount 175 325 Urine 1100 400 Other: # Bowel Movements 0 Laboratory Results - last 24 hr 01/02/18 04:41 WBC 10.8 RBC 3.50 L Hgb 11.0 L Hct 33 L MCV 96 H MCH 32 H MCHC 33 RDW 15 Plt Count 192 MPV 8.2 Neut % (Auto) 73.1 Lymph % (Auto) 14.3 L [place] % (Auto) 10.7 H Eos % (Auto) 1.4 Baso % (Auto) 0.5 Absolute Neuts (auto) 7.9 H Absolute Lymphs (auto) 1.5 Absolute Monos (auto) 1.2 H Absolute Eos (auto) 0.2 Absolute Basos (auto) 0.1 Absolute Nucleated RBC 0 Nucleated RBC % 0 Assessment: POD#1 s/p lap repair perf Gastric ulcer. Afib. Plan: Cont abx, NGT, PPI. Await UGI tomorrow. SCDs LLE only/subcut heparin.
[2018-01-03] MEDS: Piperacillin/Tazobac ADVAN(*) 3.375 GM in NS 0.9% 100 ML* 100 ML IVPB SCH (02:39)
[2018-01-03] MEDS: NS 0.9% 1000 ML* 1,000 ML IV SCH (02:39)
--- NOTE | 2018-01-03 03:46 | OP ---
CC: Dr. Cyril Marques * DATE OF OPERATION: 12/31/17 - ROOM #348 DATE OF : 30 SURGEON: Isaiah Moreno MD PRACTICE OR STUDENT TEACHER: None. ANESTHESIOLOGIST: Hernán Mchugh DO ANESTHESIA: General anesthetic, local infiltration. PRE-OP DIAGNOSIS: Perforated gastric ulcer. POST-OP DIAGNOSIS: Perforated gastric ulcer. OPERATIVE PROCEDURE: Laparoscopic omental patch of gastric ulcer. DESCRIPTION OF PROCEDURE: The patient was supine on the operating table after adequate general anesthetic, compression stockings, Shereen Hugger warmer, and intravenous antibiotics, the abdomen was prepped with antiseptic, draped in a sterile fashion. A small umbilical incision was created. Blunt port cannula was placed. Insufflation was carried out with carbon dioxide. Additional cannulae, 5 mm right mid abdomen and left upper abdomen, were placed through small stab wounds under direct vision. Evidence of perforated gastric ulcer was identified. There was a punched-out ulcer of about a centimeter in size, smoothly marginated. It had the appearance of a typical peptic ulcer. There was nothing about that appeared to malignant. There was cloudy bilious fluid throughout the abdomen. Irrigation suctioning was carried out above the liver and the gallbladder fossa up over the fundus and around the spleen and then down into the pelvis. The ulcer was covered with an omental patch using sutures of 2-0 silk. This created good coverage over the ulcer. Nasogastric tube decompressed the stomach nicely. Additional irrigation and suctioning was carried out. The cannulae were removed. Pneumoperitoneum allowed to escape. The umbilical fascia was closed with 0 Vicryl, skin with 5-0 Vicryl followed by Steri-Strips. He tolerated the procedure well, was awakened and brought to recovery in good condition. There were no complications, no drains, no pathologic specimens. Sponge and instrument counts were correct. Estimated blood loss is less than 50 mL. [id number]/[facility] #: [id number] [facility]
[2018-01-03] MEDS: Heparin VIAL(*) 5000 UNITS/ML VIAL (FIVE THOUSAND) SUBCUT SCH ×3 (05:59→21:49)
[2018-01-03] MEDS ORDERED: NS 0.9% 1000 ML* 1,000 ML IV SCH (07:30)
--- NOTE | 2018-01-03 07:30 | PN ---
Subjective Date of Service: 01/03/18 Interval History: Mr. Washington reports feeling well today except for feeling weak in his legs. He denies pain in the lower extremities. He has a history of guillaine barre and his feels that his symptoms are reminiscent of that episode back in 2005. He denies low back pain. He feels strong in his arms. He denies chest pain or SOB. He denies nausea and is eager to have his diet resumed. Objective Active Medications: Albuterol (Ventolin 2.5 Mg/3 Ml Neb.Rossana*) 2.5 mg INH Q2H PRN Heparin Sodium (Porcine) (Heparin Vial(*)) 5,000 units SUBCUT Q8HR ARCHANA Hydromorphone HCl (Dilaudid Inj*) 0.5 mg IV Q1H PRN Sodium Chloride (Ns 0.9% 1000 Ml*) 1,000 mls @ 75 mls/hr IV .PER RATE ARCHANA Ondansetron HCl (Zofran Inj*) 4 mg IV Q4H PRN Pantoprazole Sodium (Protonix Iv*) 40 mg IV DAILY ARCHANA Vital Signs: Temp Pulse Resp BP Pulse Ox 98.4 F 91 14 121/80 95 01/03/18 07:16 01/03/18 07:16 01/03/18 07:16 01/03/18 07:16 01/03/18 07:16 Oxygen Devices in Use Now: None Appearance: Elderly male lying in bed in NAD Eyes: No Scleral Icterus Ears/Nose/Mouth/Throat: Mucous Membranes Moist Neck: Trachea Midline Respiratory: Symmetrical Chest Expansion and Respiratory Effort, Clear to Auscultation Cardiovascular: NL Sounds; No Murmurs; No JVD, No Edema Abdominal: NL Sounds; No Tenderness; No Distention Lymphatic: No Cervical Adenopathy Extremities: No Edema Skin: No Rash or Ulcers Neurological: Alert and Oriented x 3, - - + 5 strength in upper extremities. Weak hip flexors: unable to lift B LEs from bed, negative reflexes in LEs, sensation intact, denies numbness, tingling or pain Nutrition: Taking PO's Result Diagrams: 01/02/18 04:41 01/03/18 11:04 Additional Lab and Data: . Assess/Plan/Problems-Billing Assessment: Mr. Washington is an 87 yo male with a PMH of afib, COPD, and guillaine-barre who was admitted on 12/31/17 with a perforated gastric ulcer now s/p laparoscopic washout and repair. - Patient Problems (1) Perforated gastric ulcer Comment: - Afebrile, not tachycardic, SBP > 100. - POD # 3 s/p washout and repair with Dr. Moreno. Upper GI series pending for this morning. - NPO, Continue NGT. - Continue protonix, will need GI follow up outpatient. Will discuss hpylori testing with GI today. (2) Weakness Comment: - New weakness this morning, unusually weak only in lower extremities. - Plan for neurology consult, hx of guillaine barre. (3) Afib Comment: - Currently in NSR. - Patient did not want anticoagulation outpatient, no history of CVA. Will resume aspirin when taking po. Patient more amenable to considering warfarin therapy, should follow up with PCP once recovered from surgery. - No indication for bridging therapy. (4) COPD (chronic obstructive pulmonary disease) Comment: - No evidence of acute exacerbation. (5) DVT prophylaxis Comment: - Heparin SQ. (6) Full code status Comment: Status and Disposition: Inpatient. Anticipate discharge to home when medically stable.
--- NOTE | 2018-01-03 07:40 | PN ---
Progress Note - Progress Note Date of Service: 01/03/18 Note: POD#3 s/p repair perf ulcer Afeb, VS noted UO large, NG moderately large Pased BM No pain Abd: soft, nontender, incis clean Impr: s/p perf ulcer, recovering well UGI to assess for leak If no leak, d/c NGT and start clers PT to assist w/ walking stop abx Will need gastro consult
[2018-01-03] MEDS: Pantoprazole IV* 40 MG IV SCH (09:19)
--- NOTE | 2018-01-03 09:24 | RAD ---
INDICATION: Gastric ulcer with perforation. Postoperative COMPARISON: CT December 31, 2017 FINDINGS: 36 seconds of fluoroscopy was utilized for a limited upper GI examination. A single contrast examination was performed following ingestion of a small amount of Gastrografin. The patient drank the Gastrografin without difficulty. There is prompt filling the stomach and prompt egress of contrast from the stomach into the small bowel. There was no evidence of extravasation. CPT II Codes: G9500 (fluoro time doc)
[2018-01-03 11:47] LABS: EGFR Non-African American 81.9 (>60)
--- NOTE | 2018-01-03 13:05 | CONS ---
CC: Dr. Moreno * NEUROLOGY CONSULTATION REPORT: DATE OF CONSULT: 01/03/18 LOCATION: He is an inpatient in [facility]. REFERRING PROVIDER: Poornima Steinberg NP CHIEF COMPLAINT: Leg weakness. HISTORY OF PRESENT ILLNESS: Aleks Washington is an 87-year-old man, who presented to the hospital with abdominal pain on 12/31/17. He had a perforated gastric ulcer and was operated by Dr. Moreno on 01/01/18. He was able to stand yesterday to urinate but today he finds that his legs are weaker than usual. His right leg in particular feels quite weak. 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 He has had persistent leg numbness and pain in the right leg, which fluctuates. He has been able to ambulate independently, however. He feels that his arms recovered completely. Currently, he has increased leg pain in his right leg, which he attributes to the automated compression stockings. He feels his arms have normal strength. He does not have any problems urinating. He denies back or neck pain. His notes that he has had some progressive weakness in his legs perhaps for a couple of weeks. He fatigues more easily than he had in prior months. He has no problems with his vision or breathing. He underwent general anesthesia. PAST MEDICAL HISTORY: Notable for chronic atrial fibrillation for which he has refused anticoagulation, COPD, Guillain-[place] syndrome, chronic constipation. MEDICATIONS: At home, consisted of aspirin 81 mg p.o. q. day. Medications here include: 1. Dilaudid 0.5 mg IV q.1 hour as needed for severe pain. 2. Zofran 4 mg IV q.4 hours p.r.n. nausea. 3. Protonix 40 mg IV q. day. 4. Albuterol inhaler q.2 hours p.r.n. wheezing. 5. Heparin 5000 units subcutaneous q.8 hours. ALLERGIES: He is allergic to PENICILLIN. REVIEW OF SYSTEMS: Currently negative for abdominal pain. He believes he is able to void okay. He denies headache or change in vision. No neck pain or back pain. No recent falls. No numbness in his arms. He has chronic numbness and pain in his right foot which is worse lately. Weight has been stable. PHYSICAL EXAM: He is thin but well-hydrated. Temperature most recently 98.4 by temporal scan, and blood pressure 121/80, heart rate in the 90s and regular, respiratory rate 18, oxygen saturation is 95% on room air. Heart is in a regular rhythm without murmurs. Neck is supple. There are no cervical bruits. Neurologically, pupils react equally to light. Eye movements are normal. Facial musculature is symmetric. Palate and tongue are normal and speech is clear. On motor exam, there is no spasticity in the arms. He has bilateral triceps weakness a little worse on the right than the left in the grade 4 to 4- range. He has mild right biceps and deltoid weakness in the grade 4+ range. He has normal strength distally in the upper extremities. In the lower extremities, he has spasticity in the right more than the left leg. He has grade 2 right hip flexor weakness, grade 4- on the left. He cannot extend either leg fully at the knee, resistive strength in the left is about 4- and the right barely 3. He has mild ankle dorsiflexor weakness on the right in the 4 range, 4+ on the left. Reflexes are grade 3 at the right biceps, 2 at the left, absent in triceps. He has hyperactive knee reflexes bilaterally but no crossed adductor signs. Ankle reflexes are absent. He has bilateral Babinski signs. He is alert and oriented and a pretty good historian. Memory seems relatively preserved. Language is fluent. IMPRESSION AND PLAN: I am concerned that Mr. Washington may have cervical spine compression. I would like to get an MRI scan of the cervical spine today. Electrolytes are pending, but he appears to have more of an upper motor neuron pattern to me. I will come back to follow up on him after this imaging and lab tests are back. [id number]/[facility] #: [id number] [facility]
--- NOTE | 2018-01-03 13:40 | RAD ---
HISTORY: leg weakness, Guillain barre syndrome COMPARISONS: None TECHNIQUE: The following sequences were obtained of the cervical spine: Sagittal T1- and T2-weighted images, sagittal STIR images, axial T2 and gradient echo images. FINDINGS: BRAIN AND SPINAL CORD: The visualized spinal cord is normal in caliber, position, and signal intensity. The visualized portion of the brain is unremarkable. The cerebellar tonsils are normal in position. ALIGNMENT: There is trace retrolisthesis of C3 on C4 and C5 on C6. VERTEBRAL BODIES: There is mild anterolateral marginal osteophyte formation. JOINTS: There is no subluxation or dislocation. There is uncovertebral and facet osteoarthritis. MUSCULATURE: Unremarkable INTERVERTEBRAL DISCS: There is diffuse loss of intervertebral disc height and T2 signal throughout the spine. AXIAL IMAGES: C2-C3: There is bilateral facet hypertrophy. There is moderate to severe bilateral neural foraminal narrowing. There is no significant central canal stenosis. C3-C4: There is bilateral uncovertebral and facet hypertrophy. There is severe right and moderate left neural foraminal narrowing. There is mild narrowing of the central canal. C4-C5: There is bilateral uncovertebral and facet hypertrophy. There is mild right neural foraminal narrowing. There is no significant central canal stenosis. C5-C6: There is a broad-based disc osteophyte complex with bilateral uncovertebral and facet hypertrophy. There is severe bilateral neural foraminal narrowing. There is mild narrowing of the central canal. C6-C7: There is bilateral uncovertebral and facet hypertrophy. There is mild left and severe right neural foraminal narrowing. There is no significant central canal stenosis. C7-T1: There is bilateral facet hypertrophy. There is mild bilateral neuroforaminal narrowing. There is no significant central canal stenosis. SOFT TISSUES: The visualized soft tissues of the neck are unremarkable. OTHER: None. IMPRESSION: 1. DEGENERATIVE DISC DISEASE AND OSTEOARTHRITIS. 2. THERE IS MULTILEVEL NEURAL FORAMINAL NARROWING DESCRIBED ABOVE. 3. THERE IS NO SIGNIFICANT CENTRAL CANAL STENOSIS. 4. THERE IS NO ABNORMAL CORD SIGNAL.
--- NOTE | 2018-01-04 03:38 | CONS ---
CC: Dr. Moreno * NEUROLOGY FOLLOWUP: DATE OF FOLLOWUP: 01/03/18 HOSPITALIST: Poornima Steinberg NP LOCATION: He is in room 348. CHIEF COMPLAINT: Leg weakness. INTERVAL HISTORY: Since seen earlier today, Mr. Washington notes a little less pain in his right leg and that he is able to stand better. The pain is mainly in his calf and behind his right knee. He had his MRI of the cervical spine, which I reviewed. There is no evidence of spinal cord compression, but there is some degenerative changes, not unexpected for his age. His laboratory studies were normal with normal electrolytes other than a calcium of 8.5. PHYSICAL EXAMINATION: On exam, there is no Hohmann's sign and no tenderness to calf palpation. There is some tenderness to trying to extend the knee fully. The knee does not look swollen. He has grade 4- weakness of his right hip flexor and has difficulty straightening the right leg, mainly because of knee pain and stiffness. He has pretty good ankle dorsiflexor strength on the right. He has grade 4+ left hip flexor weakness. I was concerned that Mr. Washington had spinal cord compression, but there is none evident. His pain and strength in the legs are little bit better than it was earlier today, so it might be from problems with his knee. He does not show signs of a deep vein thrombosis. At this point, I think I would just keep an eye on him and have physical therapy evaluate him. I will check at him again tomorrow to see if there is any change clinically. [id number]/[facility] #: [id number] MTDMelanie
[2018-01-04] MEDS: Heparin VIAL(*) 5000 UNITS/ML VIAL (FIVE THOUSAND) SUBCUT SCH ×3 (05:48→22:48)
--- NOTE | 2018-01-04 07:43 | PN ---
Progress Note - Progress Note Date of Service: 01/04/18 Note: POD#4 s/p perf ulcer T99, VS noted Melvin po's, no N/V Voiding, No pain issues Still weak in right leg, neuro assistance appreciated Abd- soft, non-tender, incis clean Impr: Recovering from perf ulcer UGI no leak on full liquids PT PPI per hospitalist Gastro f/u Disch when able
[2018-01-04] MEDS ORDERED: Acetaminophen TAB* 325 MG PO PRN (07:44)
--- NOTE | 2018-01-04 08:10 | PN ---
Subjective Date of Service: 01/04/18 Interval History: Mr. Washington denies nausea, vomiting, diarrhea or abdominal pain this morning. His NG tube is out and he is on a full liquid diet. He does however again after weakness and stiffness in his bilateral LEs, L > R. He did have significant improvement in this through the day yesterday. Objective Active Medications: Acetaminophen (Tylenol Tab*) 325 mg PO Q4H PRN Albuterol (Ventolin 2.5 Mg/3 Ml Neb.Rossana*) 2.5 mg INH Q2H PRN Heparin Sodium (Porcine) (Heparin Vial(*)) 5,000 units SUBCUT Q8HR [facility] Sodium Chloride (Ns 0.9% 1000 Ml*) 1,000 mls @ 75 mls/hr IV .PER RATE [facility] Ondansetron HCl (Zofran Inj*) 4 mg IV Q4H PRN Pantoprazole Sodium (Protonix Iv*) 40 mg IV DAILY ARCHANA Vital Signs: Temp Pulse Resp BP Pulse Ox 98.3 F 82 16 137/77 96 01/04/18 07:39 01/04/18 07:39 01/04/18 07:59 01/04/18 07:39 01/04/18 07:39 Oxygen Devices in Use Now: None Appearance: Elderly male sitting up in chair in NAD, at bedside Eyes: No Scleral Icterus Ears/Nose/Mouth/Throat: Mucous Membranes Moist Neck: Trachea Midline Respiratory: Symmetrical Chest Expansion and Respiratory Effort, Clear to Auscultation Cardiovascular: NL Sounds; No Murmurs; No JVD, No Edema Abdominal: NL Sounds; No Tenderness; No Distention Lymphatic: No Cervical Adenopathy Extremities: No Edema Skin: No Rash or Ulcers Neurological: Alert and Oriented x 3, - - +2 strength bilateral hip flexors, knees stiff Nutrition: Taking PO's Result Diagrams: 01/02/18 04:41 01/03/18 11:04 Additional Lab and Data: . Assess/Plan/Problems-Billing Assessment: Mr. Washington is an 87 yo male with a PMH of afib, COPD, and guillaine-barre who was admitted on 12/31/17 with a perforated gastric ulcer now s/p laparoscopic washout and repair. - Patient Problems (1) Perforated gastric ulcer Comment: - NG tube out, now on full liquid diet. - POD # 4 s/p washout and repair with Dr. Moreno. Upper GI series showed no extravasation. - Switch to omeprazole BID, will need GI follow up outpatient. No history of NSAID use. H pylori stool antigen sent and pending. (2) Weakness Comment: - Greatly improved yesterday but now weak again, ? polyneuropathy related to acute illness. - Appreciate neurology consult. Cervical spine MRI negative. History of guillaine-barre in 2005. (3) Afib Comment: - Currently in NSR. - Patient did not want anticoagulation outpatient, no history of CVA. Will resume aspirin when taking po. Patient more amenable to considering warfarin therapy, should follow up with PCP once recovered from surgery. - No indication for bridging therapy. (4) COPD (chronic obstructive pulmonary disease) Comment: - No evidence of acute exacerbation. (5) DVT prophylaxis Comment: - Heparin SQ. (6) Full code status Comment: Status and Disposition: Inpatient. Anticipate discharge to home when medically stable.
[2018-01-04] MEDS: Pantoprazole IV* 40 MG IV SCH (09:03)
--- NOTE | 2018-01-04 18:00 | RAD ---
Indication: Right knee pain. 2 views of the right knee demonstrates degenerative changes of the medial and lateral compartment with chondrocalcinosis. Degenerative changes of the patellofemoral joint is noted. There appears to be is moderate size joint effusion noted. IMPRESSION: Degenerative changes of the right knee with chondrocalcinosis and likely moderate size joint effusion.
[2018-01-04] MEDS: Omeprazole CAP* 20 MG PO SCH (18:13)
--- NOTE | 2018-01-04 19:06 | CONS ---
NEUROLOGY FOLLOWUP NOTE: DATE OF FOLLOWUP: 01/04/18 LOCATION: He is an inpatient in room 348. HOSPITALIST: Poornima Steinberg NP CHIEF COMPLAINT: Left stiffness. INTERVAL HISTORY: Since yesterday, Aleks reported his legs are very stiff. This morning it was very hard to get him out of bed. After he got up and moved around, his walking improved. He was able to walk around the unit with the assistance of physical therapy. He went 250 feet with a rolling walker. MEDICATIONS: Reviewed. He remains on: 1. Albuterol inhaler p.r.n. 2. Heparin 5000 units subcu q.8 hours. 3. Omeprazole 20 mg p.o. b.i.d. 4. Zofran 4 mg IV q.4 hours p.r.n. nausea, vomiting. PHYSICAL EXAMINATION: On exam, he is afebrile, blood pressure 138/59, heart rate is in the 60s, respiratory rate is 16 and oxygen saturation is 94% on room air. He has good strength in his arms. He has marked stiffness and limited range of motion in both flexion and extension of the right knee. He cannot fully extend it. He can stand with help of his arms out of the chair independently. He is able to perform resistive strength and hip flexors and ankle dorsiflexors. Knee reflexes are absent. IMPRESSION: Mr. Washington's legs were very stiff and I think it may be related to knee pathology. I have written orders for x-rays of his knees. I think I would just continue to recommend working with physical therapy, but if the x- rays show anything particularly unusual, then Orthopedic consultation might be useful. [id number]/[facility] #: [id number] MTDD
[2018-01-05] MEDS: Heparin VIAL(*) 5000 UNITS/ML VIAL (FIVE THOUSAND) SUBCUT SCH ×3 (06:28→21:31)
[2018-01-05] MEDS: Omeprazole CAP* 20 MG PO SCH ×2 (08:25→16:12)
--- NOTE | 2018-01-05 09:06 | PN ---
Progress Note - Progress Note Date of Service: 01/05/18 SOAP: Subjective: Tolerating po without N/V and having loose BM's Minimal incisional pain Main complaint is leg and knee stiffness-still requiring nursing assistance to get out of chair and ambulate in halls. Objective: Temp Pulse Resp BP Pulse Ox 98.3 F 87 20 118/60 96 01/05/18 03:44 01/05/18 04:41 01/05/18 04:41 01/05/18 03:44 01/05/18 04:41 Intake & Output 01/03/18 01/04/18 01/05/18 01/06/18 06:59 06:59 06:59 06:59 Intake Total 2101 1530 300 Output Total 2135 425 600 Balance -34 1105 -300 Weight 170 lb Intake: IV Fluids 2000 635 NS (0.9%) 2000 635 IVPB 100 105 ABX - ZOSYN 100 105 Oral 0 790 300 Output: NG Tube Drainage Amount 960 Urine 1175 175 450 Liquid Stool 250 150 Other: Estimated Void Medium Date of Last Bowel 01/03/18 Movement # Bowel Movements 0 1 Estimated Stool Amount Medium # Voids 4 PEX: Comfortable in chair Abd is soft and slightly distended. Incisions are clean and dry. Bowel sounds are present. No labs H. Pylori negative Assessment: POD#5 s/p laparoscopic repair of perforated gastric ulcer Deconditioning Plan: Hold off on d/c today-increase activity and strength today, physical therapy-he remains weak and lives with his in [place] home. Full liquid diet PPI BID Plan d/c 01/06 All discussed with patient and his .
--- NOTE | 2018-01-05 09:07 | PN ---
Subjective Date of Service: 01/05/18 Interval History: Mr. Washington reports feeling well today. He denies nausea, vomiting or abdominal pain and is tolerating oral intake well. He is having bowel movements. He continues to report some lower extremity stiffness/weakness R> L. Objective Active Medications: Acetaminophen (Tylenol Tab*) 325 mg PO Q4H PRN Albuterol (Ventolin 2.5 Mg/3 Ml Neb.Rossana*) 2.5 mg INH Q2H PRN Heparin Sodium (Porcine) (Heparin Vial(*)) 5,000 units SUBCUT Q8HR [facility] Sodium Chloride (Ns 0.9% 1000 Ml*) 1,000 mls @ 75 mls/hr IV .PER RATE [facility] Omeprazole (Prilosec Cap*) 20 mg PO 0730,1630 [facility] Ondansetron HCl (Zofran Inj*) 4 mg IV Q4H PRN Vital Signs: Temp Pulse Resp BP Pulse Ox 98.3 F 87 20 118/60 96 01/05/18 03:44 01/05/18 04:41 01/05/18 04:41 01/05/18 03:44 01/05/18 04:41 Oxygen Devices in Use Now: None Appearance: Male sitting up in chair in NAD Eyes: No Scleral Icterus Ears/Nose/Mouth/Throat: Mucous Membranes Moist Neck: Trachea Midline Respiratory: Symmetrical Chest Expansion and Respiratory Effort, Clear to Auscultation Cardiovascular: NL Sounds; No Murmurs; No JVD, No Edema Abdominal: - - soft, minimal tenderness, no distention, BS+ Extremities: No Edema Skin: No Rash or Ulcers Neurological: Alert and Oriented x 3, - - Stiffness to right knee, weakness at hip flexors. Able to stand independently and ambulate with walker. Result Diagrams: 01/02/18 04:41 01/03/18 11:04 Additional Lab and Data: . Assess/Plan/Problems-Billing Assessment: Mr. Washington is an 87 yo male with a PMH of afib, COPD, and guillaine-barre who was admitted on 12/31/17 with a perforated gastric ulcer now s/p laparoscopic washout and repair. - Patient Problems (1) Perforated gastric ulcer Comment: - Tolerating soft diet. - POD # 5 s/p washout and repair with Dr. Moreno. Upper GI series showed no extravasation. - Switch to omeprazole BID, will need GI follow up outpatient. No history of NSAID use. H pylori stool antigen sent and pending. (2) Weakness Comment: - Suspect largely due to knee stiffness, knee xray with osteoarthritis and joint effusion on the R. - Appreciate neurology consult. Cervical spine MRI negative. History of guillaine-barre in 2005. (3) Afib Comment: - Currently in NSR. - Patient did not want anticoagulation outpatient, no history of CVA. Will resume aspirin when taking po. Patient more amenable to considering warfarin therapy, should follow up with PCP once recovered from surgery. - No indication for bridging therapy. (4) COPD (chronic obstructive pulmonary disease) Comment: - No evidence of acute exacerbation. (5) DVT prophylaxis Comment: - Heparin SQ. (6) Full code status Comment: Status and Disposition: Inpatient. Anticipate discharge to home when medically stable.
[2018-01-06] MEDS: Heparin VIAL(*) 5000 UNITS/ML VIAL (FIVE THOUSAND) SUBCUT SCH ×2 (06:04→13:55)
[2018-01-06] MEDS: Omeprazole CAP* 20 MG PO SCH (08:41)
--- NOTE | 2018-01-06 10:53 | PN ---
Progress Note - Progress Note Date of Service: 01/06/18 Note: Surgery Progress: S: POD #6. Denies abd pain. Doing better re: ambulation and RLE pain (acute on chronic). Melvin soft diet well. His mentions that she thought the LLE was swollen. He denies any c/o LLE pain. They state that there was no chronic swelling of either LE pre-hospital. He is having BMs (loose). Current Medications Acetaminophen (Tylenol Tab*) 325 mg PO Q4H PRN PRN Reason: PAIN OR TEMPERATURE Last Admin: 01/04/18 22:52 Dose: 325 mg Albuterol (Ventolin 2.5 Mg/3 Ml Neb.Rossana*) 2.5 mg INH Q2H PRN PRN Reason: SOB/WHEEZING Heparin Sodium (Porcine) (Heparin Vial(*)) 5,000 units SUBCUT Q8HR [facility] Last Admin: 01/06/18 06:04 Dose: 5,000 units Sodium Chloride (Ns 0.9% 1000 Ml*) 1,000 mls @ 75 mls/hr IV .PER RATE [facility] Omeprazole (Prilosec Cap*) 20 mg PO 0730,1630 [facility] Last Admin: 01/06/18 08:41 Dose: 20 mg Ondansetron HCl (Zofran Inj*) 4 mg IV Q4H PRN PRN Reason: NAUSEA/VOMITING O: Vital Signs - 8 hr 01/06/18 01/06/18 01/06/18 03:28 03:53 07:41 Temperature 98.3 F 98.5 F Pulse Rate 60 81 86 Respiratory 14 16 16 Rate Blood Pressure 127/65 125/65 (mmHg) O2 Sat by Pulse 97 97 93 Oximetry 01/06/18 01/06/18 08:30 08:35 Temperature Pulse Rate 85 Respiratory 16 16 Rate Blood Pressure (mmHg) O2 Sat by Pulse 95 Oximetry Intake and Output Last 24 Hours 01/04/18 01/05/18 01/06/18 01/07/18 06:59 06:59 06:59 06:59 Intake Total 1530 300 430 Output Total 222 910 0743 275 Balance 1105 -300 -1270 -275 Weight 170 lb Intake: IV Fluids 635 NS (0.9%) 635 IVPB 105 ABX - ZOSYN 105 Oral 790 300 430 Output: Urine 362 627 1658 275 Liquid Stool 250 150 Other: Estimated Void Medium Date of Last Bowel 01/03/18 01/05/18 Movement # Bowel Movements 1 1 Estimated Stool Amount Medium Medium # Voids 4 PE: Gen: WN; NAD Heart: reg (w/ occ irreg beat?) Lungs: clear Abd: lap incision sites are clean; no infection; soft; no sig tenderness Extr: 1-2 + pitting edema for both LE; by calf circumference measurements (~ 36 cm) they are the same; no Homans sign. A: s/p lap repair perf'd gastric ulcer, improving P: home today on Prilosec 20 BID; I discussed his ASA w/ Dr. Moreno who agreed that it would be contraindicated at least for the short term; he has seen Dr. Gonzalez in the past and his will contact that office for f/u (within 2 wks). He has a f/u w/ us next week (01/11) and a f/u w/ GI ([facility]) 02/08.
--- NOTE | 2018-01-06 13:10 | PN ---
Subjective Date of Service: 01/06/18 Interval History: Patient seen and examined at bedside. Denies fever, chills, shortness of breath , chest discomfort, N/V/D. Pt is sitting up and eating his lunch at this time. Family History: Unchanged from Admission Social History: Unchanged from Admission Past Medical History: Unchanged from Admission Objective Active Medications: Acetaminophen (Tylenol Tab*) 325 mg PO Q4H PRN Reason: PAIN OR TEMPERATURE Albuterol (Ventolin 2.5 Mg/3 Ml Neb.Rossana*) 2.5 mg INH Q2H PRN Reason: SOB/ WHEEZING Heparin Sodium (Porcine) (Heparin Vial(*)) 5,000 units SUBCUT Q8HR [facility] Sodium Chloride (Ns 0.9% 1000 Ml*) 1,000 mls @ 75 mls/hr IV .PER RATE [facility] Omeprazole (Prilosec Cap*) 20 mg PO 0730,1630 [facility] Ondansetron HCl (Zofran Inj*) 4 mg IV Q4H PRN Reason: NAUSEA/VOMITING Vital Signs - 8 hr 01/06/18 01/06/18 01/06/18 07:41 08:30 08:35 Temperature 98.5 F Pulse Rate 86 85 Respiratory 16 16 16 Rate Blood Pressure 125/65 (mmHg) O2 Sat by Pulse 93 95 Oximetry Oxygen Devices in Use Now: None Appearance: NAD, sitting up on the side of the bed Ears/Nose/Mouth/Throat: Mucous Membranes Moist Respiratory: Symmetrical Chest Expansion and Respiratory Effort, Clear to Auscultation Cardiovascular: NL Sounds; No Murmurs; No JVD, RRR Abdominal: NL Sounds; No Tenderness; No Distention Extremities: - - Bilateral LE edema Neurological: Alert and Oriented x 3, NL Muscle Strength and Tone Nutrition: Taking PO's Result Diagrams: 01/02/18 04:41 01/03/18 11:04 Additional Lab and Data: . Assess/Plan/Problems-Billing Assessment: Mr. Washington is an 87 yo male with a PMH of afib, COPD, and guillaine-barre who was admitted on 12/31/17 with a perforated gastric ulcer now s/p laparoscopic washout and repair. - Patient Problems (1) Perforated gastric ulcer Code(s): K25.5 - CHRONIC OR UNSPECIFIED GASTRIC ULCER WITH PERFORATION SNOMED Code(s): 5135223 Comment: - POD # 6 s/p washout and repair with Dr. Moreno. Upper GI series showed no extravasation - Tolerating soft diet - Continue omeprazole BID - Will need GI follow up outpatient (No history of NSAID use. H pylori stool antigen negative) (2) Weakness Code(s): R53.1 - WEAKNESS SNOMED Code(s): 24711776 Comment: - Suspect largely due to knee stiffness, knee xray with osteoarthritis and joint effusion on the right - Appreciate neurology consult. Cervical spine MRI negative. History of guillaine-barre in 2006 (3) Afib Code(s): I48.91 - UNSPECIFIED ATRIAL FIBRILLATION SNOMED Code(s): 64724998 Comment: - Currently in sinus rhythm - Patient did not want anticoagulation outpatient, no history of CVA. Will resume aspirin when ok with general surgery. Patient more amenable to considering warfarin therapy, should follow up with PCP once recovered from surgery - No indication for bridging therapy (4) COPD (chronic obstructive pulmonary disease) Code(s): J44.9 - CHRONIC OBSTRUCTIVE PULMONARY DISEASE, UNSPECIFIED SNOMED Code(s): 42483940 Comment: - No evidence of acute exacerbation (5) DVT prophylaxis Code(s): VYO7903 - SNOMED Code(s): 696793814 Comment: - Heparin SQ (6) Full code status Code(s): Z78.9 - OTHER SPECIFIED HEALTH STATUS SNOMED Code(s): 952013639 Status and Disposition: Inpatient. Discharge to home today per General Surgery
[2018-01-06 13:59] VITALS: BP 122/67
--- NOTE | 2018-01-07 00:28 | DS ---
AMENDED REPORT NOW INCLUDES COSIGNER DESIGNATION - ESIGNED BEFORE ADJUSTMENT CC: Dr. Marques; Dr. Edgar Gonzalez; Dr. Josh Bey; Dr. Pete Segal * DISCHARGE SUMMARY: DATE OF ADMISSION: 12/31/17 DATE OF DISCHARGE: 01/06/18 ATTENDING SURGEON: Dr. Isaiah Moreno.* (DICTATED BY VICTORINO LUNA) HOSPITAL COURSE: Please refer to admission history and physical and operative note for details. The patient was taken to the operating room on 12/31/17 with evidence of a perforated viscus. At the time of surgery, this was found to be related to a perforated gastric ulcer. Dr. Moreno repaired this utilizing a [place] patch. The patient's postoperative course has been uncomplicated as regards to the surgery (an upper GI study on 01/03/18 was normal). The patient has been maintained on PPI (currently omeprazole 20 mg b.i.d.). He has no significant pain. 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 He was seen in consultation by Dr. Segal from Neurology and also by the hospitalist service for medical management. PHYSICAL EXAMINATION: On the morning of discharge, temperature 98.5, blood pressure 125/65, pulse 86, respirations 16, room air saturation 93% to 97%. General: Well nourished, well developed male, in no acute distress. He appears comfortable and moves easily from supine to sitting position. Skin: Warm and dry. Heart: Regular rhythm with occasional irregular beat. Lungs: Clear to auscultation. No rales or wheezes. Abdomen: Laparoscopic incision site healing well under Steri-Strips, which were left in place. No evidence of wound infection. Abdomen is otherwise soft and nontender. IMPRESSION: Status post laparoscopic repair of perforated gastric ulcer. PLAN: Home today on oral omeprazole 20 mg b.i.d. A followup with GI is scheduled for 02/08/[address] Bey. He was also instructed to contact Dr. Gonzalez's office for followup within 2 weeks regarding anticoagulation for his paroxysmal atrial fibrillation. Aspirin would be relatively contraindicated in the current setting. He also has a followup scheduled with our office on with Dr. Moreno. ENMA VERONICA [place] [id number]/[facility] #: [id number] [facility] HOSPITALMelanie
== END 2018-01-06 13:53 | disposition home or self-care (01) | DRG 327 ==
LOC: ED 19:54 → OR 01-01 00:58 → SSU 01-01 02:42
PROVIDERS: ADMIT Surgery; ATTEND Surgery
PROC: 0DU647Z Supplement Stomach with Autologous Tissue Substitute, Percutaneous Endoscopic Approach (ICD-10-PCS; principal; 2017-12-31 23:40)
DX: K25.5 Chronic or unspecified gastric ulcer with perforation (principal); J98.11 Atelectasis; K44.9 Diaphragmatic hernia without obstruction or gangrene; K80.20 Calculus of gallbladder without cholecystitis without obstruction; J44.9 Chronic obstructive pulmonary disease, unspecified; I48.2 Chronic atrial fibrillation; D64.9 Anemia, unspecified; M25.461 Effusion, right knee; K59.09 Other constipation; M17.11 Unilateral primary osteoarthritis, right knee; G89.29 Other chronic pain; K66.8 Other specified disorders of peritoneum; Z87.891 Personal history of nicotine dependence; Z88.0 Allergy status to penicillin; Z88.8 Allergy status to other drugs, medicaments and biological substances; Z91.018 Allergy to other foods; Z98.49 Cataract extraction status, unspecified eye; Z82.49 Family history of ischemic heart disease and other diseases of the circulatory system; Z80.8 Family history of malignant neoplasm of other organs or systems
CPT/HCPCS: 36415; 71045; 72141; 74176; 74246; 80048; 80053; 81003; 83605; 83690; 84484; 85025; 85610; 85730; 87338; 93005; 96360; 96374; 96376; 99213; 99284; A9270-GY; G0463; G8978-GP-CJ; G8979-GP-CI; G8987-GO-CJ; G8988-GO-CI; G8989-GO-CI; J0690; J1170; J1644; J2270; J2543; J2710; J3010

== ENCOUNTER 2018-01-12 17:46 | Emergency (ER) | payer MEDICARE ==
--- NOTE | 2018-01-12 18:15 | ED ---
Lower Extremity - HPI Summary HPI Summary: discharged from hospital 6 days ago s/p gastric ulcer perforation. Patient developed pain and swelling in right lower leg, - History of Current Complaint Chief Complaint: EDExtremityLower Stated Complaint: RT LEG POSS BLOOD CLOT Time Seen by Provider: 01/12/18 18:20 Hx Obtained From: Patient, Family/International [employer]iter, Medical Records Mechanism Of Injury: Other - none Onset of Pain: Days - 6-8 hours Severity Initially: Mild Severity Currently: Mild Timing: Constant Location: Is Discrete @ - rll Character Of Pain: Aching Associated Signs And Symptoms: Positive: Swelling Aggravating Factor(s): Ambulation Alleviating Factor(s): Nothing Able to Bear Weight: Yes - Allergies/Home Medications Allergies/Adverse Reactions: Allergies Allergy/AdvReac Type Severity Reaction Status Date / Time chicken derived Allergy Unknown Verified 01/12/18 18:17 Reaction Details Penicillins Allergy Rash Verified 01/12/18 18:17 calcium carbonate AdvReac Vomiting Verified 01/12/18 18:17 PMH/Surg Hx/FS Hx/Imm Hx Previously Healthy: No Endocrine/Hematology History: Denies: Hx Anticoagulant Therapy, Hx Diabetes, Hx Thyroid Disease Cardiovascular History: Denies: Hx Angina, Hx Congestive Heart Failure, Hx Coronary Artery Disease, Hx Deep Vein Thrombosis, Hx Hypercholesterolemia, Hx Hypertension, Hx Myocardial Infarction, Hx Pacemaker/ICD, Hx Valvular Heart Disease Respiratory History: Reports: Hx Pneumonia Denies: Hx Asthma, Hx Chronic Obstructive Pulmonary Disease (COPD), Hx Lung Cancer, Hx Pulmonary Embolism GI History: Reports: Hx Gastrointestinal Bleed, Hx Ulcer Denies: Hx Gall Bladder Disease, Hx Urosepsis History: Denies: Hx Kidney Stones, Hx Renal Disease Musculoskeletal History: Reports: Hx Gout Sensory History: Reports: Hx Contacts or Glasses, Hx Hearing Aid Opthamlomology History: Reports: Hx Contacts or Glasses Neurological History: Reports: Other Neuro 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 GASTRIC ULCER REPAIR Infectious Disease History: Denies: Hx Clostridium Difficile, Hx Hepatitis, Hx Human Immunodeficiency Virus (HIV), Hx of Known/Suspected MRSA, History Other Infectious Disease - Family History Known Family History: Positive: Cardiac Disease, Other - Eye cancer (sister) Negative: Hypertension Family History: NON CONTRIBUTORY - Social History Occupation: Retired Lives: With Family Alcohol Use: None Hx Substance Use: No Substance Use Type: Reports: None Smoking Status (MU): Former Smoker Length of Time of Smoking/Using Tobacco: quit Review of Systems Constitutional: Negative Eyes: Negative ENT: Negative Cardiovascular: Negative Respiratory: Negative Gastrointestinal: Negative Genitourinary: Negative Positive: Myalgia - right lower leg, Edema - 3 cm greater than left leg Skin: Negative Neurological: Negative Psychological: Normal All Other Systems Reviewed And Are Negative: Yes Physical Exam Triage Information Reviewed: Yes Vital Signs Reviewed: Yes Appearance: Positive: Well-Appearing, No Pain Distress, Well-Nourished Skin: Positive: Warm, Skin Color Reflects Adequate Perfusion Head/Face: Positive: Normal Head/Face Inspection Eyes: Positive: Normal, EOMI, ELSIE, Conjunctiva Clear ENT: Positive: Normal ENT inspection, Hearing grossly normal, Pharynx normal. Negative: Trismus, Muffled voice, Hoarse voice Neck: Positive: Supple, Nontender Respiratory/Lung Sounds: Positive: Clear to Auscultation, Breath Sounds Present Cardiovascular: Positive: Normal, RRR, Pulses are Symmetrical in both Upper and Lower Extremities, Leg Edema Right Abdomen Description: Positive: Nontender, No Organomegaly, Soft Bowel Sounds: Positive: Present Musculoskeletal: Positive: Edema Right Neurological: Positive: Normal, Sensory/Motor Intact, Alert, Oriented to Person Place, Time, Facial Symmetry, Speech Normal Psychiatric: Positive: Normal AVPU Assessment: Alert - [place] Coma Scale Best Eye Response: 4 - Spontaneous Best Motor Response: 6 - Obeys Commands Best Verbal Response: 5 - Oriented Coma Scale Total: 15 Diagnostics - Laboratory Lab Statement: Any lab studies that have been ordered have been reviewed, and results considered in the medical decision making process. - Radiology No standard instances Xray Interpretation: No Acute Changes - Patient Name: AKIRA HERMOSILLO Medical Record# : [id number] Ordering Physician: Jovana Parra NP Acct.#: [id number] : 1930 Age: 87 Sex: M Location: EMERGENCY DEPARTMENT Exam Date: 01/12/181828 ADM Status: REG ER Order Information: VL LOWER EXT VEINS RIGHT Accession Number: [id number] CPT: 95873 INDICATION: RIGHT lower extremity pain and swelling following recent hospitalization. COMPARISON: January 04, 2018 RIGHT knee radiographs. May 09, 2007 RIGHT lower extremity venous ultrasound. TECHNIQUE: Bettencourt scale, color Doppler, and spectral analysis of the deep veins of the RIGHT lower extremity. Vessel compression, phasicity, and augmentation assessed. REPORT: The RIGHT common femoral, great saphenous, profunda femoral, femoral, popliteal, peroneal, and posterior tibial veins are patent. 3.9 x 1.0 x 2.1 cm complex RIGHT popliteal cyst with evidence for synovitis and probable loose bodies. Patency of the LEFT common femoral vein documented. IMPRESSION: #. No evidence for RIGHT lower extremity deep venous thrombosis. #. 3.9 x 1.0 x 2.1 cm complex RIGHT popliteal cyst with evidence for synovitis and probable loose bodies. < Electronically signed by Wayne Cruz MD in OV> 01/12/181911 Dictated By: Wayne Cruz MD Dictated Date/Time: 01/12/181911 Transcribed Date/Time: 05/22 Copy to: CC:Cyril Marques MD; Jovana Parra RENTAL CLERK [employer]; Celestino Matt MD Imaging - [facility] Imaging - [place] [facility] [address] [address] ph ([phone] ph [phone] ph ) This report is only to be considered final once signed by the Provider(s) as displayed in the "<Electronically Signed by >" field (s). Absence of a signature indicates the report is in a draft status and still needs to be finalized. In the event this document was created by someone other than the signing Provider, the individual initiating the document will be listed in the "Entered by:" or "Dictated by:" rizo. 1 of 1 Radiology Interpretation Completed By: Radiologist Lower Extremity Course/Dx - Course Assessment/Plan: gino, tylenol follow with orthopedic MD - Diagnoses Provider Diagnoses: Synovitis of right knee, Strong cyst Discharge - Sign-Out/Discharge Documenting (check all that apply): Patient Departure - Discharge Plan Condition: Stable Disposition: HOME Patient Education Materials: Acetaminophen (By mouth), Bakers Cyst (ED) Referrals: Cyril Marques MD [Primary Care Provider] - 2 Days Rosa Martinez MD [Medical Doctor] - 2 Days - Billing Disposition and Condition Condition: STABLE Disposition: Home
--- NOTE | 2018-01-12 19:16 | RAD ---
INDICATION: RIGHT lower extremity pain and swelling following recent hospitalization. COMPARISON: January 04, 2018 RIGHT knee radiographs. May 09, 2007 RIGHT lower extremity venous ultrasound. TECHNIQUE: Bettencourt scale, color Doppler, and spectral analysis of the deep veins of the RIGHT lower extremity. Vessel compression, phasicity, and augmentation assessed. REPORT: The RIGHT common femoral, great saphenous, profunda femoral, femoral, popliteal, peroneal, and posterior tibial veins are patent. 3.9 x 1.0 x 2.1 cm complex RIGHT popliteal cyst with evidence for synovitis and probable loose bodies. Patency of the LEFT common femoral vein documented. IMPRESSION: #. No evidence for RIGHT lower extremity deep venous thrombosis. #. 3.9 x 1.0 x 2.1 cm complex RIGHT popliteal cyst with evidence for synovitis and probable loose bodies.
[2018-01-12 20:23] VITALS: BP 141/67
== END 2018-01-12 20:22 | disposition home or self-care (01) ==
LOC: ED 17:46
DX: M65.861 Other synovitis and tenosynovitis, right lower leg (principal); M71.21 Synovial cyst of popliteal space [Baker], right knee; Z88.0 Allergy status to penicillin; K21.9 Gastro-esophageal reflux disease without esophagitis; M10.9 Gout, unspecified; G61.0 Guillain-Barre syndrome; Z82.49 Family history of ischemic heart disease and other diseases of the circulatory system; Z80.8 Family history of malignant neoplasm of other organs or systems; Z87.891 Personal history of nicotine dependence
CPT/HCPCS: 99283